=== PATIENT | female | born 1985 | race Caucasian/White ===

== ENCOUNTER 2022-03-13 02:19 | Emergency (ER) | payer BC, SELFPAY ==
[2022-03-13] VITALS (7 sets, daily range): BP systolic 99–113; BP diastolic 67–78; PULSE 65–78; RESP 14–18; TEMP 37.2; O2SAT 98–100; BMI 21.3
--- NOTE | 2022-03-13 02:53 | CRLHL7_ITS ---
For Patients: As a result of the Century Cures Act, medical imaging exams and procedure reports are released immediately into your electronic medical record. You may view this report before your referring provider. If you have questions, please contact your health care provider. INDICATION: Chest pain. COMPARISON: None available. FINDINGS: PA and lateral views of the chest were obtained. The lungs are clear. No focal or diffuse infiltrates are present. There is no sign of pneumothorax or abnormality of the ribs to correlate with the history of chest pain. The heart is normal in size. The mediastinum is normal in appearance. The osseous structures are normal in appearance for the patient`s age. IMPRESSION: Normal chest 2 views. Dictated by Otis Tubbs MD @ 03/13/2022 3:24:00 AM (Electronically Signed)
--- NOTE | 2022-03-13 02:56 | ED_ITS ---
HPI - URI/Sore Throat General Time Seen by Provider: 02:35 Date Seen: 03/13/22 Chief Complaint: Unspecified Complaint, Adult Stated Complaint: Covid Exposure Heavy Chest Weak Time Seen by Provider: 03/13/22 02:35 Source: patient, RN notes reviewed and old records reviewed Mode of arrival: ambulatory Limitations: no limitations History of Present Illness HPI Narrative: Zee is a very pleasant 36-year-old female nonsmoker and healthy who comes to the emergency room for chest pain and possible COVID. Patient notes the onset of vomiting and diarrhea on Wednesday that continued through yesterday . This has since ceased but she continues to have significant body aches and feels like she is not keeping up with her fluids. She notes tonight she had an episode of chest heaviness and discomfort as well as rapid heart rate. She notes she is somewhat improved but states she just feels so weak at this point. She notes that she has had a runny nose and sore throat as well. She did do a video of physician visit last night and was able to take some Zofran this morning which helped. She has not had any previous heart problems nor history of DVT or family members with history of clotting disorders. She denies lower extremity edema or calf tenderness. Known exposure to COVID last week. MD elicited complaint: fever, cough, sore throat, rhinorrhea and nasal congestion Onset (ago): day(s) Able to tolerate fluids by mouth: Yes Treatments prior to arrival: acetaminophen and ibuprofen Related Data Home Medications Medication Instructions Recorded Confirmed ipratropium bromide 42 mcg (0.06 INTRANASAL 03/13/22 %) nasal spray norgestimate-ethinyl estradiol tab 03/13/22 0.18 mg/0.215mg/0.25mg-35 mcg(28)tablet (Tri-Linyah) ondansetron 4 mg disintegrating mg 03/13/22 tablet Allergies Allergy/AdvReac Type Severity Reaction Status Date / Time Sulfa (Sulfonamide Allergy Verified 03/13/22 02:33 Antibiotics) Review of Systems Status of ROS: Reports: 10 or more systems reviewed and unremarkable except as noted in History and below Const: Reports: fever and fatigue Eyes: Denies: change in vision ENMT: Reports: throat pain; Denies: neck pain, throat swelling or difficulty swallowing Cardio: Reports: chest pain, shortness of breath with exertion and shortness of breath when lying down; Denies: palpitations or swelling of feet/ankles Resp: Reports: shortness of breath and cough; Denies: wheezing GI: Reports: vomiting (Resolved) and diarrhea (Improved); Denies: abdominal pain or difficulty swallowing : Denies: painful urination or urinary frequency Musculo: Denies: back pain or neck pain Integ/Breast: Denies: rash Neuro: Denies: headache Psych: Denies: anxiety Endo: Reports: fatigue Allergy/Immuno: Denies: throat swelling or wheezing PFSH PFSH Social History Smoking Status: Never smoker How often do you have a drink containing alcohol: never AUDIT-C Alcohol total score: 0 Non-prescribed substance use: denies use Exam Narrative: Exam Narrative: Past medical history: Heavy vaginal bleeding currently on control and looking for endometrial ablation soon with our OBGYN physician. 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 Family history: Mother with stage IV lung cancer Const: Vital Signs, click to edit/add: Vital Signs - 24 hr 03/13/22 02:28 03/13/22 03:30 03/13/22 04:00 Temperature 99.0 F Pulse Rate [Left P ulse Oximeter] 71 68 76 Respiratory Rate 18 16 16 Blood Pressure [Ri ght Upper Arm] 108/75 113/69 104/76 Pulse Oximetry 98 100 100 03/13/22 04:30 Temperature Pulse Rate [Left P ulse Oximeter] 78 Respiratory Rate 16 Blood Pressure [Ri ght Upper Arm] 104/69 Pulse Oximetry 100 Documenting provider has reviewed patient's vital signs: yes Common normals: oriented x3 Other: Tearful and moderately anxious. HENMT: Common normals: normocephalic and external ears normal Head and scalp: normocephalic Face and sinus: normal facial exam Nose: nares normal External ear: external ears normal Mouth: oral and palatal mucosa normal and tongue normal Throat: posterior oropharynx normal Eye: Common normals: PERRL and conjunctivae normal General eye: normal appearance of both eyes Conjunctiva: conjunctiva(e) normal Pupil: PERRL Neck & C-Spine: Common normals: full ROM General: normal visual inspection Cervical spine: cervical ROM normal Resp: Common normals: normal respiratory effort and clear to auscultation bilaterally; retractions Effort & inspection: able to speak in complete sentences Auscultation: clear to auscultation bilaterally Cardio: Common normals: regular rate and regular rhythm Rate: regular rate Rhythm: regular rhythm GI: Common normals: Normal to inspection, nondistended, normoactive bowel sounds present, soft to palpation and non-tender Palpation: soft Extremity: Common normals: normal to inspection and no pedal edema Neuro: Common normals: oriented x3 Course Course Hospital Course: Patient is strongly severe suspicious for COVID but must also consider PE, pneumonia, acute coronary syndrome, anxiety. We will obtain an EKG and troponin as well as chest x-ray, CBC, comprehensive panel, urinalysis, CRP and D-dimer. I did speak to patient about possibility of CT if D-dimer is elevated. While waiting the results we will a give patient 1 L of normal saline, Zofran 4 mg IV and Toradol 15 mg IV. Reevaluation(s) Reevaluation #1: Risks benefits regarding CT for detection PE are discussed with patient. Patient's D-dimer is elevated and she is currently oral contraceptions. She is very worried and does have chest pain. EKGs have been reassuring at this time. Proceeding with CT. Vital Signs Vital signs: Initial Vital Signs Temperature 99.0 F 03/13/22 02:28 Temperature Source Temporal Artery Scan 03/13/22 02:28 Pulse Rate 71 03/13/22 02:28 Respiratory Rate 18 03/13/22 02:28 Blood Pressure 108/75 03/13/22 02:28 Blood Pressure Mean 86 03/13/22 02:28 Blood Pressure Position Sitting 03/13/22 02:28 Pulse Oximetry 98 03/13/22 02:28 Oxygen Delivery Method 03/13/22 02:28 Vital Signs Temperature 99.0 F 03/13/22 02:28 Pulse Rate 71 03/13/22 02:28 Respiratory Rate 18 03/13/22 02:28 Blood Pressure 108/75 03/13/22 02:28 Pulse Oximetry 98 03/13/22 02:28 Temperature 99.0 F 03/13/22 02:28 Pulse Rate 78 03/13/22 04:30 Respiratory Rate 16 03/13/22 04:30 Blood Pressure 104/69 03/13/22 04:30 Pulse Oximetry 100 03/13/22 04:30 MDM - URI/Sore Throat MDM Narrative Medical decision making narrative: 1. COVID-19-no evidence of PE, pneumonia or COVID appearance in lungs. Patient received 1 L of saline, Toradol 15 mg IV and Zofran 4 mg IV. She is clearly frustrated as she has done all the vaccinations and tried to follow correct protocols. She does have Zofran at home as needed. She is feeling better when she departs. 2. Hypokalemia-mild at 3.3. Recommended increasing potato, banana or Gatorade intake. 3. Disposition-home. Return for worsening symptoms. Medical Records Attestation: I reviewed the patient's medical records. Lab Data Attestation: I reviewed the patient's lab results. Labs: Lab Results 03/13/22 03/13/22 03/13/22 Range/Units 03:03 03:13 03:13 WBC 6.31 (4.50-11.00) K/uL RBC 4.17 (4.00-5.20) m/uL Hgb 11.7 L (12.0-16.0) gm/dL Hct 35.9 (33.0-51.0) % MCV 86 (80-100) fL MCH 28 (26-34) pg MCHC 33 (32-36) gm/dL RDW Coeff of Kenn 13.4 (11.5-15.5) % Plt Count 189 (140-440) K/uL Neut % (Auto) 76.5 H (42.0-72.0) % Lymph % (Auto) 11.4 L (20-44) % Divide % (Auto) 10.8 (0.0-11.0) % Eos % (Auto) 0.6 (0.0-7.0) % Baso % (Auto) 0.5 (0.0-3.0) % Neut # (Auto) 4.80 (1.7-7.0) K/uL Lymph # (Auto) 0.70 L (0.90-2.90) K/uL Divide # (Auto) 0.70 (0.00-0.90) K/UL Eos # (Auto) 0.04 (0.00-0.50) K/uL Baso # (Auto) 0.03 (0.00-0.30) K/uL Abs Immat Gran (auto) 0.01 (0.00-0.30) K/uL D-Dimer Quant (PE/DVT) 0.72 H (0.00-0.50) ug/ml Sodium (135-149) mmol/L Potassium (3.6-5.1) mmol/L Chloride (96-114) mmol/L Carbon Dioxide (20-32) mmol/L BUN (5-24) mg/dL Creatinine (0.5-1.5) mg/dL Estimated Creat Clear Estimated GFR ml/min Glucose (60-115) mg/dL Calcium (8.4-10.6) mg/dL Total Bilirubin (0.1-1.5) mg/dL AST (12-35) U/L ALT (4-35) U/L Alkaline Phosphatase (40-150) U/L Troponin I (0.01-0.04) ng/mL C-Reactive Protein (0.5-1.0) mg/dL Total Protein (6.0-8.3) g/dL Albumin (3.3-5.0) g/dL SARS-CoV-2 (PCR) POSITIVE SARS-CoV-2 A (Negative) Influenza Type A (PCR) Negative PCR FLU A (Negative) Influenza Type B (PCR) Negative PCR FLU B (Negative) 03/13/22 03/13/22 Range/Units 03:13 04:46 WBC (4.50-11.00) K/uL RBC (4.00-5.20) m/uL Hgb (12.0-16.0) gm/dL Hct (33.0-51.0) % MCV (80-100) fL MCH (26-34) pg MCHC (32-36) gm/dL RDW Coeff of Kenn (11.5-15.5) % Plt Count (140-440) K/uL Neut % (Auto) (42.0-72.0) % Lymph % (Auto) (20-44) % Divide % (Auto) (0.0-11.0) % Eos % (Auto) (0.0-7.0) % Baso % (Auto) (0.0-3.0) % Neut # (Auto) (1.7-7.0) K/uL Lymph # (Auto) (0.90-2.90) K/uL Divide # (Auto) (0.00-0.90) K/UL Eos # (Auto) (0.00-0.50) K/uL Baso # (Auto) (0.00-0.30) K/uL Abs Immat Gran (auto) (0.00-0.30) K/uL D-Dimer Quant (PE/DVT) (0.00-0.50) ug/ml Sodium 137 (135-149) mmol/L Potassium 3.3 L (3.6-5.1) mmol/L Chloride 106 (96-114) mmol/L Carbon Dioxide 24 (20-32) mmol/L BUN 13 (5-24) mg/dL Creatinine 0.8 (0.5-1.5) mg/dL Estimated Creat Clear 84.76 Estimated GFR 98 ml/min Glucose 92 (60-115) mg/dL Calcium 8.1 L (8.4-10.6) mg/dL Total Bilirubin 0.4 (0.1-1.5) mg/dL AST 28 (12-35) U/L ALT 15 (4-35) U/L Alkaline Phosphatase 71 (40-150) U/L Troponin I < 0.01 L < 0.01 L (0.01-0.04) ng/mL C-Reactive Protein 4.7 H (0.5-1.0) mg/dL Total Protein 6.6 (6.0-8.3) g/dL Albumin 3.9 (3.3-5.0) g/dL SARS-CoV-2 (PCR) (Negative) Influenza Type A (PCR) (Negative) Influenza Type B (PCR) (Negative) Imaging Data Chest x-ray: Attestation: I have reviewed the pertinent imaging results. My impression: No evidence of infiltrate. Radiologist's impression: No acute finding CT scan - chest: Attestation: I have reviewed the pertinent imaging results. My impression: I did not see any PE or infiltrates. Radiologist's impression: Normal CT of the chest. ECG Data Attestation: I personally reviewed and interpreted this ECG as follows: (EKG 1. Shows sinus rhythm at a rate of [address] or T-wave changes. Normal QT interval. Second EKG by my read shows a rate of 72 nonspecific T-wave abnormality but no other acute changes noted.) ECG interpretation date: 03/13/22 ECG interpretation time: 03:35 Discharge Plan Discharge Clinical Impression: COVID-19, Chest pain, atypical Patient Disposition: Home, Self-Care Condition: Improved Additional Instructions: Rest and push fluids. Increase potassium intake with potatoes, Gatorade or bananas. Ibuprofen or Tylenol may be used for discomfort. Optional: 1 baby aspirin daily for prevention of clots while ill. Return to the emergency room as needed Activity Level: No Restrictions Discharge Diet: Regular Prescriptions: No Action norgestimate-ethinyl estradiol [Tri-Linyah] 0.18/0.215/0.25 mg-35 mcg (28) tablet 0RF Label Comments: TAKE 1 TABLET BY MOUTH DAILY ipratropium bromide 42 mcg (0.06 %) spray,non-aerosol INTRANASAL 0RF ondansetron 4 mg tablet,disintegrating 0RF Follow Up/Referrals: Ham Hicks MD [Primary Care Provider] - Stand Alone Forms: [employer] Info Instructions
[2022-03-13 03:30] LABS: Basophils Absolute Auto 0.03 K/uL (0.00-0.30); Basophils Percent Auto 0.5 % (0.0-3.0); Eosinophils Absolute Auto 0.04 K/uL (0.00-0.50); Eosinophils Percent Auto 0.6 % (0.0-7.0); Hematocrit 35.9 % (33.0-51.0); Hemoglobin* 11.7 gm/dL (12.0-16.0); Immature Granulocytes Abs Auto 0.01 K/uL (0.00-0.30); Lymphocytes Percent Auto 11.4 % (20-44); Mean Corpuscular HGB Conc 33 gm/dL (32-36); Mean Corpuscular Hemoglobin 28 pg (26-34); Mean Corpuscular Volume 86 fL (80-100); Monocytes Percent Auto 10.8 % (0.0-11.0); Neutrophils Percent Auto 76.5 % (42.0-72.0); Platelet Count* 189 K/uL (140-440); RDW Coefficient of Variation % 13.4 % (11.5-15.5); Red Blood Count 4.17 m/uL (4.00-5.20); White Blood Count* 6.31 K/uL (4.50-11.00)
[2022-03-13] MEDS: 0.9 % SODIUM CHLORIDE 1000 ml 1,000 ML IV (03:32)
[2022-03-13] MEDS: KETOROLAC 15 MG/ML inj IVP (03:33)
[2022-03-13] MEDS: ONDANSETRON 2 MG/ML inj 4 MG IVP (03:33)
[2022-03-13 03:36] LABS: Slide Review Reflex No
[2022-03-13 03:45] LABS: Albumin* 3.9 g/dL (3.3-5.0); Chloride* 106 mmol/L (96-114)
[2022-03-13 03:46] LABS: PCR FLU A Negative PCR FLU A (Negative); PCR FLU B Negative PCR FLU B (Negative)
[2022-03-13 03:46] LABS: Potassium* 3.3 mmol/L (3.6-5.1); Sodium* 137 mmol/L (135-149)
[2022-03-13 03:47] LABS: SARS PCR* POSITIVE SARS-CoV-2 (Negative)
[2022-03-13 03:48] LABS: Creatinine* 0.8 mg/dL (0.5-1.5); Est. Creatinine Clearance* 84.76; Estimated Glomerular Filt Rate 98 ml/min
[2022-03-13 03:49] LABS: Alanine Aminotransferase* 15 U/L (4-35); Alkaline Phosphatase* 71 U/L (40-150); Aspartate Amino Transferase* 28 U/L (12-35); Bilirubin Total* 0.4 mg/dL (0.1-1.5); Blood Urea Nitrogen* 13 mg/dL (5-24); Calcium* 8.1 mg/dL (8.4-10.6); Carbon Dioxide* 24 mmol/L (20-32); Glucose* 92 mg/dL (60-115); Total Protein* 6.6 g/dL (6.0-8.3)
[2022-03-13 03:50] LABS: D Dimer Quantitative* 0.72 ug/ml (0.00-0.50)
[2022-03-13 03:52] LABS: C Reactive Protein* 4.7 mg/dL (0.5-1.0)
[2022-03-13 04:04] LABS: Troponin I* < 0.01 ng/mL (0.01-0.04)
--- NOTE | 2022-03-13 04:05 | CRLHL7_ITS ---
For Patients: As a result of the Century Cures Act, medical imaging exams and procedure reports are released immediately into your electronic medical record. You may view this report before your referring provider. If you have questions, please contact your health care provider. INDICATION: Chest pain. Elevated D-dimer. Positive COVID-19. COMPARISON: Chest radiograph from today. TECHNIQUE: CT examination of the chest was performed with the uneventful intravenous administration of 75 cc of Isovue 370 while 1.5 mm thick axial sections were obtained from above the apices of the lungs through the mid renal level. Please note that all CT scans at this facility use dose modulation, iterative reconstruction, and/or weight-based dosing when appropriate to reduce radiation dose to as low as reasonably achievable. FINDINGS: : There is no sign of pulmonary embolism, with normal enhancement and branching of the pulmonary arteries. The lungs are clear, with no sign of any infiltrates. Nothing is seen that would suggest COVID-19 pneumonia. There is no sign of a pleural effusion. There is no sign of mediastinal or hilar mass or adenopathy. The heart is normal in appearance for the patient`s age. There is age appropriate appearance of the thoracic aorta and ascending great vessels. There is no sign of supraclavicular or axillary mass or adenopathy. The visualized superior liver, spleen, pancreas, kidneys, and adrenals are normal in appearance. The osseous structures are normal in appearance for the patient`s age. IMPRESSION: No sign of pulmonary embolism. Normal CT of the chest with contrast. No sign of any infiltrates to suggest COVID-19 pneumonia. Please note that all CT scans at this facility use dose modulation, iterative reconstruction, and/or weight-based dosing when appropriate to reduce radiation dose to as low as reasonably achievable. Dictated by Otis Tubbs MD @ 03/13/2022 6:00:15 AM (Electronically Signed)
[2022-03-13 05:40] LABS: Troponin I* < 0.01 ng/mL (0.01-0.04)
== END 2022-03-13 06:25 | disposition home or self-care (01) ==
PROVIDERS: Emergency Provider Family Medicine; PCP Family Medicine
DX: U07.1 COVID-19 (principal)
CPT/HCPCS: 36415; 71046; 71260; 80053; 84484; 85025; 85379; 86140; 87502; 87635; 93005; 96374; 96375; 99285; J1885; J2405; J7030; Q9967

== ENCOUNTER 2022-05-05 09:46 | Outpatient (CLI) | payer BC, SELFPAY ==
[2022-05-05 14:08] LABS: Chloride* 103 mmol/L (96-114); Sodium* 140 mmol/L (135-149)
[2022-05-05 14:09] LABS: Potassium* 4.7 mmol/L (3.6-5.1)
[2022-05-05 14:11] LABS: Carbon Dioxide* 28 mmol/L (20-32); Creatinine* 0.7 mg/dL (0.5-1.5); Estimated Glomerular Filt Rate 116 ml/min
[2022-05-05 14:12] LABS: Blood Urea Nitrogen* 12 mg/dL (5-24); Calcium* 9.5 mg/dL (8.4-10.6); Glucose* 79 mg/dL (60-115)
== END 2022-05-05 09:47 | disposition home or self-care (01) ==
PROVIDERS: PCP Family Medicine; Visit Provider Family Medicine
DX: Z01.818 Encounter for other preprocedural examination (principal); N93.9 Abnormal uterine and vaginal bleeding, unspecified
CPT/HCPCS: 80048

== ENCOUNTER 2022-05-12 09:23 | Day surgery (SDC) | payer BC, SELFPAY ==
[2022-05-12 09:40] VITALS: BMI 21.8
--- NOTE | 2022-05-12 09:47 | W.PM.GYNPROC ---
Procedure Note Time Seen by Provider: : Date Seen: 05/12/22 Procedure Details: PREOPERATIVE DIAGNOSIS: Menorrhagia, failed medical management. POSTOPERATIVE DIAGNOSIS: Menorrhagia, failed medical management. NAME OF PROCEDURE: 1. Hysteroscopy. 2. D and C 3. Allison endometrial ablation. SURGEON: Annemarie ANESTHESIA: Monitored anesthesia care and paracervical block COMPLICATIONS: None. ESTIMATED BLOOD LOSS: 10 mL. FINDINGS: Normal-appearing endometrial cavity and tubal ostia bilaterally. PATHOLOGY SPECIMENS: Endometrial curettings. PROCEDURE: After obtaining informed consent, the patient was taken to the operating room where she received monitored anesthesia care. She was prepared and draped in the normal sterile fashion, in the dorsal lithotomy position. An open-sided bivalve speculum was introduced into the vagina and the cervix visualized. The anterior lip of the cervix was grasped with a single-tooth tenaculum for traction. A paracervical block was then administered using a total of 20 mL 0.25% Marcaine. The uterus was gently sounded. Sound length was 8 cm. The cervix length was determined to be for cm using Hegar dilators, yielding a uterine cavity length of for cm. The cervix was gently dilated to a # 6 Hegar dilator. A hysteroscope was then advanced under direct visualization through the cervix into the uterine cavity. Sterile normal saline was used as distending medium. The uterine cavity was carefully inspected with the findings noted above. The hysteroscope was then removed. The endometrial lining was then sharply curetted. The Allison device was then set to a cavity length of 4 cm, inserted through the cervical os into the uterine cavity to the level of the fundus, and deployed. The device was sealed against the cervix. The safety checks were then passed x2 and the 2-minute treatment cycle initiated. Following completion of the treatment cycle, the Allison device was removed. The hysteroscope was advanced again into the uterine cavity and the uterine cavity inspected. A good ablation was noted from the internal os to fundus and to the cornua bilaterally. Pictures were taken for documentation purposes. The hysteroscope was removed. The tenaculum was removed. There was little bleeding from the tenaculum site, which was controlled with direct pressure sponge stick. All instruments were then removed. The patient tolerated the procedure well. Sponge, lap, needle, and instrument counts reported as correct x2. The patient was taken to the recovery room awake in a stable condition.
[2022-05-12 09:50] VITALS: BP 116/81; PULSE 88; RESP 16; TEMP 37.1; O2SAT 100
[2022-05-12 09:50] LABS: Ur HCG Qualitative* Negative (Negative)
[2022-05-12] MEDS: SODIUM CHLORIDE 0.9 % (FLUSH) 10 ML SYRINGE IVF (10:12)
[2022-05-12] MEDS: ETHYL CHLORIDE 1 APPLICATION 1 APPLIC TOPICAL (10:12)
[2022-05-12] MEDS: LACTATED RINGERS 1000 ML 1,000 ML 100 ML IV (10:12)
[2022-05-12 11:25] VITALS: BP 106/72; PULSE 70; RESP 16; TEMP 36.6; O2SAT 100
--- NOTE | 2022-05-12 11:29 | W.ANESCHARGE ---
Anesthesia Charges Start Date/Time Anesthesia Start Date: 05/12/22 Anesthesia Start Time: 10:40 Stop Date/Time Anesthesia Stop Date: 05/12/22 Anesthesia Stop Time: 11:29 Summary Emergency: No
[2022-05-12] MEDS: OXYCODONE 5 MG TABLET PO (11:37)
[2022-05-12 11:40] VITALS: BP 116/72; PULSE 56; RESP 16; TEMP 36.6; O2SAT 100
[2022-05-12 11:55] VITALS: BP 114/81; PULSE 67; RESP 16; TEMP 36.6; O2SAT 100
--- NOTE | 2022-05-12 12:18 | W.ANESCHARGE ---
Anesthesia Charges Start Date/Time Anesthesia Start Date: 05/12/22 Anesthesia Start Time: 10:40 Stop Date/Time Anesthesia Stop Date: 05/12/22 Anesthesia Stop Time: 11:29 Summary Emergency: No
== END 2022-05-12 12:21 | disposition home or self-care (01) ==
PROVIDERS: Anesthesiology; PCP Family Medicine; Visit Provider Obstetrics & Gynecology
PROC: 0UF98ZZ Fragmentation in Uterus, Via Natural or Artificial Opening Endoscopic (ICD-10-PCS; CPT 58563; principal; 2022-05-12 10:45)
DX: N92.0 Excessive and frequent menstruation with regular cycle (principal)
CPT/HCPCS: 58563; 81025; 88305; 952; A9270; J1100; J1885; J2250; J2405; J2704; J3010; J7120